=== PATIENT | female | born 1980 | race Caucasian/White ===

== ENCOUNTER 2017-07-25 07:32 | Emergency (ER) | payer OTHER ==
[~2017-07-25] VITALS: Ht 157.5 cm; Wt 68.0 kg
[~2017-07-25 07:32] MED LIST: ADDERALL 30 MG30 MG PO; CLONIDINE HCL0.3 M3 PO; DIFLUCAN200 MG PO; FLAGYL500 MG PO; PROZAC20 MG PO
== END 2017-07-25 10:22 | disposition home or self-care (01) ==
LOC: ER 07:32
DX: S09.90XA Unspecified injury of head, initial encounter (principal); S00.83XA Contusion of other part of head, initial encounter; F17.210 Nicotine dependence, cigarettes, uncomplicated; W22.8XXA Striking against or struck by other objects, initial encounter; Y93.89 Activity, other specified; Y92.89 Other specified places as the place of occurrence of the external cause; Y99.8 Other external cause status